=== PATIENT | female | born 1975 | race Caucasian/White ===

== ENCOUNTER 2017-12-30 17:55 | Emergency (ER) | payer OTHER ==
[~2017-12-30] VITALS: Ht 170.2 cm; Wt 83.9 kg
[2017-12-30] MEDS ORDERED: KEPPRA500 MG (18:04)
[2017-12-30] MEDS ORDERED: DILANTIN100 MG (18:04)
[2017-12-30] MEDS ORDERED: CLONAZEPAM0.5 MG (18:04)
[2017-12-30] MEDS ORDERED: PERCOCET 10-321 EACH (18:04)
[2017-12-30] MEDS ORDERED: ADULT ASPIRIN81 MG (18:05)
== END 2017-12-30 21:27 | disposition home or self-care (01) ==
LOC: ER 17:55
DX: K52.9 Noninfective gastroenteritis and colitis, unspecified (principal)

== ENCOUNTER 2018-01-07 17:07 | Emergency (ER) | payer OTHER ==
[~2018-01-07] VITALS: Ht 170.2 cm; Wt 84.8 kg
[~2018-01-07 17:07] MED LIST: ADULT ASPIRIN81 MG; CLONAZEPAM0.5 MG; DILANTIN100 MG; KEPPRA500 MG; PERCOCET 10-321 EACH
== END 2018-01-07 22:34 | disposition home or self-care (01) ==
LOC: ER 17:07
DX: R10.2 Pelvic and perineal pain (principal); K29.70 Gastritis, unspecified, without bleeding; C53.9 Malignant neoplasm of cervix uteri, unspecified

== ENCOUNTER 2018-01-11 19:15 | Emergency (ER) | payer OTHER ==
[~2018-01-11] VITALS: Ht 152.4 cm; Wt 84.8 kg
[2018-01-12] MEDS ORDERED: CELEBREX100 MG PO (10:55)
[2018-01-12] MEDS ORDERED: PERCOCET 5-3251 EACH PO (11:11)
== END 2018-01-12 12:15 | disposition home or self-care (01) ==
LOC: ER 19:15
DX: I80.9 Phlebitis and thrombophlebitis of unspecified site (principal)

== ENCOUNTER 2018-01-19 16:26 | Emergency (ER) | payer OTHER ==
[~2018-01-19] VITALS: Ht 170.2 cm; Wt 84.8 kg
[~2018-01-19 16:26] MED LIST changes: +CELEBREX100 MG PO; +PERCOCET 5-3251 EACH PO
== END 2018-01-19 20:52 | disposition home or self-care (01) ==
LOC: ER 16:26
DX: G40.802 Other epilepsy, not intractable, without status epilepticus (principal); C53.9 Malignant neoplasm of cervix uteri, unspecified

== ENCOUNTER 2018-02-27 17:40 | Emergency (ER) | payer OTHER ==
[~2018-02-27] VITALS: Ht 170.2 cm; Wt 86.2 kg
== END 2018-02-27 20:03 | disposition home or self-care (01) ==
LOC: ER 17:40
DX: R10.2 Pelvic and perineal pain (principal); R51 Headache; C52 Malignant neoplasm of vagina

== ENCOUNTER 2018-06-17 18:37 | Emergency (ER) | payer OTHER ==
[~2018-06-17] VITALS: Ht 170.2 cm; Wt 84.4 kg
== END 2018-06-17 20:45 | disposition home or self-care (01) ==
LOC: ER 18:37
DX: N93.8 Other specified abnormal uterine and vaginal bleeding (principal); N83.292 Other ovarian cyst, left side; D25.9 Leiomyoma of uterus, unspecified

== ENCOUNTER 2019-04-26 18:13 | Emergency (ER) | payer OTHER ==
[~2019-04-26] VITALS: Ht 170.2 cm; Wt 81.6 kg
[2019-04-26] MEDS ORDERED: CLONAZEPAM2 MG PO (18:30)
== END 2019-04-26 20:18 | disposition home or self-care (01) ==
LOC: ER 18:13
DX: G43.809 Other migraine, not intractable, without status migrainosus (principal); R10.2 Pelvic and perineal pain

== ENCOUNTER → 2019-05-26 | Emergency (ER) | payer OTHER ==
[~2019-05-26] VITALS: Ht 170.2 cm; Wt 81.6 kg
[~2019-05-26] MED LIST changes: +CLONAZEPAM2 MG PO
== END | disposition left against medical advice (07) ==
LOC: ER 20:19
DX: Z53.20 Procedure and treatment not carried out because of patient's decision for unspecified reasons (principal)

== ENCOUNTER 2020-09-10 18:55 | Emergency (ER) | payer OTHER ==
[~2020-09-10] VITALS: Ht 170.2 cm; Wt 77.1 kg
== END 2020-09-10 21:05 | disposition home or self-care (01) ==
LOC: ER 18:55
DX: M54.5 Low back pain (principal)

== ENCOUNTER 2020-09-11 19:42 | Emergency (ER) | payer OTHER ==
[~2020-09-11] VITALS: Ht 170.2 cm; Wt 79.4 kg
== END 2020-09-11 21:01 | disposition home or self-care (01) ==
LOC: ER 19:42
DX: M54.5 Low back pain (principal)

== ENCOUNTER → 2020-09-13 | Emergency (ER) | payer OTHER ==
[~2020-09-13] VITALS: Ht 170.2 cm; Wt 77.1 kg
== END | disposition left against medical advice (07) ==
LOC: ER 15:31
DX: R10.2 Pelvic and perineal pain (principal)

== ENCOUNTER 2020-09-17 16:19 | Emergency (ER) | payer OTHER ==
[~2020-09-17] VITALS: Ht 170.2 cm; Wt 77.1 kg
== END 2020-09-17 18:45 | disposition home or self-care (01) ==
LOC: ER 16:19
DX: D25.9 Leiomyoma of uterus, unspecified (principal); R10.2 Pelvic and perineal pain

== ENCOUNTER 2020-10-07 15:20 | Emergency (ER) | payer OTHER ==
[~2020-10-07] VITALS: Ht 170.2 cm; Wt 77.1 kg
== END 2020-10-07 20:26 | disposition home or self-care (01) ==
LOC: ER 15:20
DX: S34.22XA Injury of nerve root of sacral spine, initial encounter (principal); M54.41 Lumbago with sciatica, right side; X50.0XXA Overexertion from strenuous movement or load, initial encounter; Y93.E9 Activity, other interior property and clothing maintenance; Y92.018 Other place in single-family (private) house as the place of occurrence of the external cause; Y99.8 Other external cause status

== ENCOUNTER 2020-10-10 17:57 | Emergency (ER) | payer OTHER ==
[~2020-10-10] VITALS: Ht 170.2 cm; Wt 77.1 kg
== END 2020-10-10 20:56 | disposition home or self-care (01) ==
LOC: ER 17:57
DX: M54.32 Sciatica, left side (principal)

== ENCOUNTER 2020-10-12 07:52 | Emergency (ER) | payer OTHER ==
[~2020-10-12] VITALS: Ht 170.2 cm; Wt 77.1 kg
[2020-10-12] MEDS ORDERED: CLONAZEPAM2 MG PO (08:23)
== END 2020-10-12 11:18 | disposition home or self-care (01) ==
LOC: ER 07:52
DX: M54.5 Low back pain (principal)

== ENCOUNTER → 2020-10-17 | Emergency (ER) | payer OTHER ==
[~2020-10-17] VITALS: Ht 170.2 cm; Wt 77.1 kg
[~2020-10-17] MED LIST changes: +ULTRACET PO
== END | disposition home or self-care (01) ==
LOC: ER 11:34
DX: M54.42 Lumbago with sciatica, left side (principal)

== ENCOUNTER 2020-10-21 15:37 | Emergency (ER) | payer OTHER ==
[~2020-10-21] VITALS: Ht 170.2 cm; Wt 77.1 kg
[~2020-10-21 15:37] MED LIST changes: -ULTRACET PO
== END 2020-10-21 18:35 | disposition home or self-care (01) ==
LOC: ER 15:37
DX: M54.42 Lumbago with sciatica, left side (principal)

== ENCOUNTER 2020-10-28 16:04 | Emergency (ER) | payer OTHER ==
[~2020-10-28] VITALS: Ht 170.2 cm; Wt 72.6 kg
[2020-10-28] MEDS ORDERED: ULTRACET PO (20:41)
== END 2020-10-28 20:50 | disposition home or self-care (01) ==
LOC: ER 16:04
DX: M54.5 Low back pain (principal)

== ENCOUNTER 2020-12-04 16:31 | Emergency (ER) | payer OTHER ==
[~2020-12-04] VITALS: Ht 172.7 cm; Wt 77.1 kg
[~2020-12-04 16:31] MED LIST changes: +ULTRACET PO
== END 2020-12-04 17:38 | disposition home or self-care (01) ==
LOC: ER 16:31
DX: R51.9 Headache, unspecified (principal); R10.2 Pelvic and perineal pain

== ENCOUNTER 2020-12-11 16:26 | Emergency (ER) | payer OTHER ==
[~2020-12-11] VITALS: Ht 175.3 cm; Wt 93.0 kg
== END 2020-12-11 17:38 | disposition home or self-care (01) ==
LOC: ER 16:26
DX: D26.9 Other benign neoplasm of uterus, unspecified (principal); M54.5 Low back pain

== ENCOUNTER → 2020-12-18 | Emergency (ER) | payer OTHER ==
[~2020-12-18] VITALS: Ht 172.7 cm; Wt 77.1 kg
== END | disposition left against medical advice (07) ==
LOC: ER 16:40
DX: R10.2 Pelvic and perineal pain (principal)

== ENCOUNTER 2021-02-28 10:21 | Emergency (ER) | payer OTHER ==
[~2021-02-28] VITALS: Ht 172.7 cm; Wt 77.1 kg
== END 2021-02-28 12:20 | disposition home or self-care (01) ==
LOC: ER 10:21
DX: N94.6 Dysmenorrhea, unspecified (principal); N93.9 Abnormal uterine and vaginal bleeding, unspecified

== ENCOUNTER → 2021-03-07 | Emergency (ER) | payer OTHER ==
[~2021-03-07] VITALS: Ht 172.7 cm; Wt 77.1 kg
[~2021-03-07] MED LIST changes: +DILANTIN100 MG PO; +DOLOGEN CAPLET1 EACH PO
== END | disposition home or self-care (01) ==
LOC: ER 16:19
DX: N93.9 Abnormal uterine and vaginal bleeding, unspecified (principal); F41.9 Anxiety disorder, unspecified

== ENCOUNTER 2021-03-30 00:20 | Emergency (ER) | payer OTHER ==
[~2021-03-30] VITALS: Ht 172.7 cm; Wt 72.6 kg
[~2021-03-30 00:20] MED LIST changes: -DILANTIN100 MG PO; -DOLOGEN CAPLET1 EACH PO
[2021-03-30] MEDS ORDERED: DOLOGEN CAPLET1 EACH PO (00:58)
== END 2021-03-30 01:02 | disposition home or self-care (01) ==
LOC: ER 00:20
DX: S80.12XA Contusion of left lower leg, initial encounter (principal); W18.39XA Other fall on same level, initial encounter; Y93.89 Activity, other specified; Y92.098 Other place in other non-institutional residence as the place of occurrence of the external cause; Y99.8 Other external cause status; M79.662 Pain in left lower leg

== ENCOUNTER 2021-05-12 13:41 | Emergency (ER) | payer OTHER ==
[~2021-05-12] VITALS: Ht 172.7 cm; Wt 72.6 kg
[~2021-05-12 13:41] MED LIST changes: +DOLOGEN CAPLET1 EACH PO
[2021-05-12] MEDS ORDERED: DILANTIN100 MG PO (14:23)
[2021-06-04] MEDS ORDERED: CLONAZEPAM2 MG (19:30)
== END 2021-05-12 17:04 | disposition home or self-care (01) ==
LOC: ER 13:41
DX: M54.5 Low back pain (principal); M79.652 Pain in left thigh; M79.651 Pain in right thigh

== ENCOUNTER → 2021-06-04 | Emergency (ER) | payer OTHER ==
[~2021-06-04] VITALS: Ht 152.4 cm; Wt 72.6 kg
[~2021-06-04] MED LIST changes: +CLONAZEPAM2 MG; +DILANTIN100 MG PO
== END | disposition home or self-care (01) ==
LOC: ER 18:57
DX: N93.8 Other specified abnormal uterine and vaginal bleeding (principal); R10.2 Pelvic and perineal pain

== ENCOUNTER 2021-07-29 20:47 | Emergency (ER) | payer OTHER ==
[~2021-07-29] VITALS: Ht 172.7 cm; Wt 68.0 kg
[2021-07-29] MEDS ORDERED: ULTRAM50 MG PO (22:04)
== END 2021-07-29 22:10 | disposition home or self-care (01) ==
LOC: ER 20:47
DX: S50.11XA Contusion of right forearm, initial encounter (principal); W22.8XXA Striking against or struck by other objects, initial encounter; Y93.89 Activity, other specified; Y92.89 Other specified places as the place of occurrence of the external cause; Y99.8 Other external cause status

== ENCOUNTER 2021-10-30 21:07 | Emergency (ER) | payer OTHER ==
[~2021-10-30] VITALS: Ht 172.7 cm; Wt 81.6 kg
[~2021-10-30 21:07] MED LIST changes: +ULTRAM50 MG PO
== END 2021-10-31 00:56 | disposition left against medical advice (07) ==
LOC: ER 21:07
DX: Z53.21 Procedure and treatment not carried out due to patient leaving prior to being seen by health care provider (principal); L03.114 Cellulitis of left upper limb; Z88.6 Allergy status to analgesic agent; Z88.8 Allergy status to other drugs, medicaments and biological substances

== ENCOUNTER 2022-01-30 16:39 | Emergency (ER) | payer OTHER ==
[~2022-01-30] VITALS: Ht 172.7 cm; Wt 77.1 kg
== END 2022-01-30 18:24 | disposition home or self-care (01) ==
LOC: ER 16:39
DX: M79.18 Myalgia, other site (principal); Z88.6 Allergy status to analgesic agent; Z88.8 Allergy status to other drugs, medicaments and biological substances

== ENCOUNTER → 2022-03-02 | Emergency (ER) | payer OTHER ==
[~2022-03-02] VITALS: Ht 172.7 cm; Wt 72.6 kg
== END | disposition home or self-care (01) ==
LOC: ER 18:00
DX: R10.2 Pelvic and perineal pain (principal)

== ENCOUNTER → 2022-11-28 | Emergency (ER) | payer OTHER ==
[~2022-11-28] VITALS: Ht 172.7 cm; Wt 72.6 kg
== END | disposition left against medical advice (07) ==
LOC: ER 13:39
DX: Z53.21 Procedure and treatment not carried out due to patient leaving prior to being seen by health care provider (principal)

== ENCOUNTER 2023-03-08 05:41 | Inpatient (IN) | payer OTHER ==
[~2023-03-08] VITALS: Ht 172.7 cm; Wt 159.7 kg
== END 2023-03-11 22:32 | disposition left against medical advice (07) | DRG 812 ==
LOC: ER 05:41 → OB/GYN 17:25
PROVIDERS: ADMIT Obstetrics & Gynecology; ATTEND Obstetrics & Gynecology
PROC: BU4CZZZ Ultrasonography of Uterus and Ovaries (ICD-10-PCS; principal; 2023-03-08)
PROC: 30233N1 Transfusion of Nonautologous Red Blood Cells into Peripheral Vein, Percutaneous Approach (ICD-10-PCS; 2023-03-08)
DX: D50.0 Iron deficiency anemia secondary to blood loss (chronic) (principal); N93.8 Other specified abnormal uterine and vaginal bleeding; Z20.822 Contact with and (suspected) exposure to COVID-19

== ENCOUNTER → 2023-04-08 | Emergency (ER) | payer OTHER ==
[~2023-04-08] VITALS: Ht 172.7 cm; Wt 72.6 kg
== END | disposition left against medical advice (07) ==
LOC: ER 16:54
DX: M25.532 Pain in left wrist (principal); R10.2 Pelvic and perineal pain; E03.9 Hypothyroidism, unspecified; Z88.6 Allergy status to analgesic agent; Z88.8 Allergy status to other drugs, medicaments and biological substances

== ENCOUNTER 2023-04-12 17:41 | Emergency (ER) | payer OTHER ==
[~2023-04-12] VITALS: Ht 167.6 cm; Wt 81.6 kg
== END 2023-04-12 21:46 | disposition home or self-care (01) ==
LOC: ER 17:41
PROVIDERS: Nurse Practitioner Family
DX: N93.9 Abnormal uterine and vaginal bleeding, unspecified (principal); R10.2 Pelvic and perineal pain; Z88.6 Allergy status to analgesic agent; Z88.8 Allergy status to other drugs, medicaments and biological substances